=== PATIENT | male | born 1990 | race Caucasian/White ===

== ENCOUNTER 2021-05-03 18:59 | Emergency (ER) | payer OTHER ==
[~2021-05-03] VITALS: Ht 175.3 cm; Wt 76.7 kg
[2021-05-03 18:59] VITALS: BP 162/92
[2021-05-03] MEDS ORDERED: ACETAMINOPHEN 500 MG TAB PO ONE (22:15)
[2021-05-03] MEDS ORDERED: LIDOCAINE 5% (LIDODERM) PATCH TD ONE (22:15)
[2021-05-03] MEDS ORDERED: NAPROXEN 250 MG TAB PO ONE (22:15)
[2021-05-03] MEDS ORDERED: ASPE4PAD TOP (22:20)
[2021-05-04] MEDS ORDERED: **NOTE PATIENT COMMENT** MISC XX SCH (21:00)
== END 2021-05-03 22:43 | disposition home or self-care (01) ==
LOC: M ED 18:59
DX: R07.89 Other chest pain (principal); R51.9 Headache, unspecified; M54.2 Cervicalgia; V49.40XA Driver injured in collision with unspecified motor vehicles in traffic accident, initial encounter

== ENCOUNTER 2021-06-04 20:23 | Emergency (ER) | payer OTHER ==
[~2021-06-04] VITALS: Ht 175.3 cm; Wt 77.1 kg
[~2021-06-04 20:23] MED LIST: ASPE4PAD TOP
[2021-06-04 20:24] VITALS: BP 138/68
[2021-06-04] MEDS ORDERED: AMIT100TA PO (20:42)
[2021-06-04] MEDS ORDERED: ADVITAB PO (20:42)
[2021-06-04] MEDS ORDERED: KETOROLAC TROMETHAMINE 10 MG TAB PO ONE (23:20)
== END 2021-06-05 00:19 | disposition home or self-care (01) ==
LOC: M ED 20:23
DX: S90.32XA Contusion of left foot, initial encounter (principal); S90.112A Contusion of left great toe without damage to nail, initial encounter; W20.8XXA Other cause of strike by thrown, projected or falling object, initial encounter; Y92.9 Unspecified place or not applicable; Y93.9 Activity, unspecified; Y99.1 Military activity

== ENCOUNTER → 2022-03-25 | Outpatient (CLI) | payer OTHER ==
[~2022-03-25] MED LIST changes: +ADVITAB PO; +AMIT100TA PO
== END ==
LOC: M PLAIMG 12:34
DX: M24.411 Recurrent dislocation, right shoulder (principal); Z53.9 Procedure and treatment not carried out, unspecified reason

== ENCOUNTER → 2022-04-06 | Outpatient (CLI) | payer OTHER ==
[~2022-04-06] MED LIST changes: +ISOVUE-300 61% 50ML VIAL As Ordered ONE; +LIDOCAINE 1% MDV 20ML VIAL As Ordered ONE; +PROHANCE 279.3MG/ML 5ML VIAL As Ordered ONE
== END ==
LOC: M RAD 13:03
DX: S43.004A Unspecified dislocation of right shoulder joint, initial encounter (principal); X58.XXXA Exposure to other specified factors, initial encounter; Y92.9 Unspecified place or not applicable
CPT/HCPCS: 23350; 73223; 77002; A9576